=== PATIENT | female | born 1960 | race Caucasian/White ===

== ENCOUNTER 2021-12-27 06:46 | Emergency (ER) | payer OTHER ==
[2021-12-27] MEDS ORDERED: Ondansetron PF 4 MG/2 ML Vial ONE (07:53)
[2021-12-27] MEDS ORDERED: Acetaminophen 500 MG TAB ONE (09:51)
== END 2021-12-27 09:55 | disposition home or self-care (01) ==
LOC: ERS 06:46
DX: R43.2 Parageusia (principal); R43.0 Anosmia; Z20.822 Contact with and (suspected) exposure to COVID-19
CPT/HCPCS: 93005; 96361; 96374; J2405; U0003; U0005